=== PATIENT | male | born 1945 | race Caucasian/White ===

== ENCOUNTER → 2016-11-30 | Outpatient (CLI) | payer MEDICARE, BC ==
[~2016-11-30] MED LIST: ASPI81TA2 PO; BISO1TAB4 PO; FISH1CAP2 PO; GLUC1CAP25 PO; MELO15TA12 PO; MULT-37 PO; NIAC500T7 PO; PUMP160C PO
--- NOTE | 2016-11-30 13:14 | DI ---
LOCATION OF DICTATION: [place] EXAM: CHEST, PA LATERAL HISTORY: ITS.REASON: Z01.89 Encounter for other specified special examinations preoperative evaluation for shoulder surgery scheduled December 16. COMPARISON: Compared to August 18, 2013. FINDINGS: The heart size is normal. The mediastinal configuration is unremarkable. There are no consolidating opacities or pleural effusions. There is no evidence for a pneumothorax. The osseous structures are within normal limits. IMPRESSION: No acute cardiopulmonary abnormality is identified. .
== END ==
LOC: IMA 11:39
PROVIDERS: ATTEND Physician Assistant
DX: Z01.89 Encounter for other specified special examinations (principal)

== ENCOUNTER 2016-12-16 05:38 | Day surgery (SDC) | payer MEDICARE, BC ==
[2016-12-16] VITALS (17 sets, daily range): BP systolic 145–186; BP diastolic 71–87; PULSE 62–84; RESP 16–22; TEMP 97–97.6; O2SAT 91–97; Ht 174 cm; Wt 91.7 kg
[~2016-12-16] VITALS: Ht 174 cm; Wt 91.7 kg
--- OUTSIDE RECORDS SUMMARY | 2016-12-16 05:42 | XMS REPORT | Continuity of Care Document ---
Demographics Preferred Language Unknown Marital Status Unknown Faith Affiliation Unknown Race Unknown Ethnic Group Unknown Author Author [facility] Organization [facility] Address Unknown Phone Unavailable Allergies Medications Problems Procedures Results Encounters ACCT No. Visit Date/Time Discharge Status Pt. Type Provider Facility Loc./Unit Complaint [id number] 09/07/2013 09:56:00 ACT Unknown
--- OUTSIDE RECORDS SUMMARY | 2016-12-16 05:42 | XMS REPORT | CCD ---
Author Author [facility] Organization Unknown Address [address], [place] [id number] Phone 0 Care Team Providers Care Amphibious Operations Officer Name Role Phone Mahi SÁNCHEZ Attending Physician [phone] Vital Signs Unknown. Allergies Unknown. Procedures Unknown. History of Immunizations Unknown. Problems Unknown. Results Unknown. Medications Unknown. Medications Administered Unknown. Encounters Unknown. Social History Smoking Status Code Start Date End Date Former smoker [id number] Patient Decision Aids Unknown. Instructions You were admitted to [facility] on 09/06/2013. Should you have any questions prior to discharge, please contact a member of your healthcare team. If you have left the hospital and have any questions, please contact your primary care physician. Chief Complaint and Reason For Visit Chief Complaint Date of Onset PT Function Status Unknown. Plan of Care Unknown. Referral/Transition of Care Unknown.
--- OUTSIDE RECORDS SUMMARY | 2016-12-16 05:42 | XMS REPORT | Summary of Care ---
Author Author Lázaro Zapata M.D. 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, N40.1) Status: Active History of Gross hematuria (599.71, R31.0) Status: Resolved Medications Name Dates Details Saw [place] Oral Capsule Active Fish Oil 1000 MG Oral Capsule * Refills: 0 Active Aspirin EC 81 MG Oral Tablet Delayed Release * Refills: 0 Active Multi Vitamin Daily Oral Tablet * Refills: 0 Active Glucosamine Chondroitin TABS * Refills: 0 Active Niaspan 500 MG Oral Tablet Extended Release * Refills: 0 Active Meloxicam 15 MG Oral Tablet * Refills: 0 Active Bisoprolol-Hydrochlorothiazide 5-6.25 MG Oral Tablet * Refills: 0 Active Allergies and Adverse Reactions Name Dates Details No Known Allergies (Allergy) Status: Active Past Medical History Name Dates Details History of arthritis (V13.4, Z87.39) Status: Resolved History of Dyslipidemia (272.4, E78.5) Status: Resolved History of Gross hematuria (599.71, R31.0) Status: Resolved History of hypertension (V12.59, Z86.79) Status: Resolved Procedures Procedure Dates Details History of Colonoscopy History of Shoulder Surgery Procedures not documented Immunization Name Dates Details Immunizations not documented Family History Name Dates Details Family history of hypertension (V17.49, Z82.49) Comments: Family History Status: Active Name Dates Details Family history of congenital heart disease (V19.5, Z82.79) Status: Active Social History Name Dates Details - Status: Name Dates Details Never smoker Vital Signs Date Test Result Details No Known Vitals to report Results Date Description Value Details 11-Sep-2016 13:57 PSA ( PROSTATE SPECIFIC ANTIGEN) 3100 PROSTATE SPECIFIC ANTIGEN 2.350 ng/mL Range: 0.000-4.000 Plan of Care Name Dates Details Planned Observations Planned Goals not documented Planned Encounters Appointment; Provider: Lázaro Zapata M.D. On 10-Sep-2017 09:00 Instructions Name Dates Details Instructions not documented Encounters Appointment; Lázaro Zapata M.D. Encounter Diagnosis: Problem not documented On 11-Sep-2016 09:15 Appointment; Lázaro Zapata M.D. Encounter Diagnosis: Problem not documented On 30-Aug-2015 10:45
--- OUTSIDE RECORDS SUMMARY | 2016-12-16 05:42 | XMS REPORT | Summary of Care ---
Author Author Lázaro Zapata M.D. Unknown Address [address] [place] [address] [place] [address] Phone Unavailable Care Team Providers Care Crop Farmers Name Role Phone Lázaro Zapata M.D. Unavailable Unavailable Jerrell Rodriguez Unavailable Unavailable Unavailable Unavailable Functional [...] Status: Resolved Medications Name Dates Details Saw [place] Oral Capsule Active Fish Oil 1000 MG [...] History of Colonoscopy History of Shoulder Surgery PSA ( PROSTATE SPECIFIC ANTIGEN) 3100 Ordered: 11-Sep-2016 Immunization Name Dates Details Immunizations not documented [...] to report Results Date Description Value Details Results not documented Plan of Care Name Dates Details Planned Observations Planned Goals not documented Planned Encounters Appointment; Provider: Lázaro Zapata M.D. On 10-Sep-2017 09:00 Interventions Provided Labs/Procedures/Imaging* PSA ( PROSTATE SPECIFIC ANTIGEN) 3100; To be Done: 11 Sep 2016 Instructions Name Dates Details Instructions not documented Encounters Appointment; Lázaro Zapata M.D. Encounter Diagnosis: Problem not documented On 30-Aug-2015 10:45
--- OUTSIDE RECORDS SUMMARY | 2016-12-16 05:43 | XMS REPORT | Summary of Care ---
Author Author Lázaro Zapata M.D. Unknown Address [address] [place] [address] [place] [address] Phone Unavailable Care Team Providers Care Certified Welder Name Role Phone Lázaro Zapata M.D. Unavailable [...] Status: Resolved Medications Name Dates Details Saw [place] Oral Capsule Active Fish Oil 1000 MG [...]
--- OUTSIDE RECORDS SUMMARY | 2016-12-16 05:43 | XMS REPORT | Summary of Care ---
Author Author Lázaro Zapata M.D. Unknown Address [address] [place] [address] [place] [address] Phone Unavailable Care Team Providers Care Utility Bag Assembler Name Role Phone Jerrell Rodriguez PP Unavailable Unavailable Unavailable Functional Status Functional Status Health Issues* Name Dates Details Functional status health issues are not documented Status: Cognitive Status Health Issues* Name Dates Details Cognitive status health issues are not documented Status: Problems Name Dates Details BPH with obstruction/lower urinary tract symptoms (600.01, N40.1) Status: Active History of Gross hematuria (599.71, R31.0) Status: Resolved 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, 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: Active Medications Name Dates Details Saw [place] Oral Capsule ActiveFish Oil 1000 MG Oral Capsule * Refills: 0 ActiveAspirin EC 81 MG Oral Tablet Delayed Release * Refills: 0 ActiveMulti Vitamin Daily Oral Tablet * Refills: 0 ActiveGlucosamine Chondroitin TABS * Refills: 0 ActiveNiaspan 500 MG Oral Tablet Extended Release * Refills: 0 ActiveMeloxicam 15 MG Oral Tablet * Refills: 0 ActiveBisoprolol-Hydrochlorothiazide 5-6.25 MG Oral Tablet * Refills: 0 Active Allergies and Adverse Reactions Name Dates Details No Known Allergies Status: Active Past Medical History Name Dates Details History of arthritis (V13.4, Z87.39) Status: Resolved History of Dyslipidemia (272.4, E78.5) Status: Resolved History of Gross hematuria (599.71, R31.0) Status: Resolved History of hypertension (V12.59, Z86.79) Status: Resolved Procedures Procedure Dates Details History of Colonoscopy History of Shoulder Surgery PSA ( PROSTATE SPECIFIC ANTIGEN) 3100 Ordered:30-Aug-2015 Immunization Name Dates Details Immunizations not documented Family History Unknown Family Member* Name Dates Details Family history of hypertension (V17.49, Z82.49) Comments: Family History Status: Active Father* Name Dates Details Family history of congenital heart disease (V19.5, Z82.79) Status: Active Social History Name Dates Details Smoking Status* Never smoker Vital Signs Date Test Result Details 30-Aug-2015 10:29 BP Systolic 163 mm[Hg] Status: BP Diastolic 70 mm[Hg] Status: Heart Rate 56 /min Status: Height 70 in Status: Weight 206 lb Status: Body Mass Index Calculated 29.56 kg/m2 Status: Body Surface Area Calculated 2.11 m2 Status: Results Date Description Value Details Results not documented Plan of Care Planned Observations* Name Dates Details Planned Goals not documented Goal Planned Encounters* Appointment; Provider: Lázaro Zapata On 04-Sep-2016 09:30 Instructions * Instructions not documented Encounters Appointment; Lázaro Zapata Encounter Diagnosis: Problem not documented On 30-Aug-2015 10:45
--- OUTSIDE RECORDS SUMMARY | 2016-12-16 05:43 | XMS REPORT | Summary of Care ---
Author Author Lázaro Zapata M.D. Unknown Address [address] [place] [address] [place] [address] Phone Unavailable Care Team Providers Care Incinerator Plant Supervisor Name Role Phone Jerrell Rodriguez PP Unavailable [...] Status: Active Medications Name Dates Details Saw [place] Oral Capsule ActiveFish Oil 1000 MG Oral [...]
--- OUTSIDE RECORDS SUMMARY | 2016-12-16 05:43 | XMS REPORT | Summary of Care ---
Author Author Lázaro Zapata M.D. Unknown Address [address] [place] [address] [place] [address] Phone Unavailable Care Team Providers Care Heavy Equipment Service Manager Name Role Phone Jerrell Rodriguez PP Unavailable [...] Status: Active Medications Name Dates Details Saw [place] Oral Capsule ActiveFish Oil 1000 MG Oral [...]
--- OUTSIDE RECORDS SUMMARY | 2016-12-16 05:43 | XMS REPORT | Summary of Care ---
Author Author Lázaro Zapata M.D. Unknown Address [address] [place] [address] [place] [address] Phone Unavailable Care Team Providers Care Air Traffic Coordinator Name Role Phone Jerrell Rodriguez PP Unavailable [...] Status: Active Medications Name Dates Details Saw [place] Oral Capsule ActiveFish Oil 1000 MG Oral [...] m2 Status: Results Date Description Value Details 30-Aug-2015 13:12 PSA ( PROSTATE SPECIFIC ANTIGEN) 3100 PROSTATE SPECIFIC ANTIGEN 1.280 ng/mL (Better) Range: 0.000-4.000 Plan of Care Planned Observations* Name Dates Details Planned Goals not documented Goal Planned Encounters* Appointment; Provider: Lázaro Zapata On 04-Sep-2016 09:30 Instructions * Instructions not documented Encounters Appointment; Lázaro Zapata Encounter Diagnosis: Problem not documented On 30-Aug-2015 10:45
--- OUTSIDE RECORDS SUMMARY | 2016-12-16 05:43 | XMS REPORT | Summary of Care ---
Author Author [facility] Organization [facility] Address [address] [place] [address] Phone Care Team Providers Care Chemist Steroids Name Role Phone Royal Redman, User Unavailable Unavailable Jerrell Rodriguez Unavailable Unavailable Unavailable [...] Status: Resolved Medications Name Dates Details Saw [place] Oral Capsule Active Fish Oil 1000 MG [...] Provider: Lázaro Zapata M.D. On 10-Sep-2017 09:00 Appointment; Provider: Lázaro Zapata M.D. On 13-Jan-2017 09:00 Instructions Name Dates Details Instructions not documented Encounters Appointment; Lázaro Zapata M.D. Encounter Diagnosis: Problem not documented On 11-Sep-2016 09:15 Appointment; Lázaro Zapata M.D. Encounter Diagnosis: Problem not documented On 30-Aug-2015 10:45
[2016-12-16] MEDS ORDERED: CEFAZOLIN 2 G in NORMAL SALINE 100 ML IV ONE (06:15)
[2016-12-16 06:23] LABS: ANION GAP 15 MEQ/L (5-15); BUN/CREATININE RATIO 22 RATIO (6-26); CALCIUM 9.6 MG/DL (8.4-10.2); CHLORIDE 108 MEQ/L (98-107); CO2 - CARBON DIOXIDE 24 MEQ/L (22-30); CREATININE 1.3 MG/DL (0.8-1.5); GLOMERULAR FILTRATION RATE 55; GLUCOSE 103 MG/DL (75-110); POTASSIUM 4.1 MEQ/L (3.6-5); SODIUM 147 MEQ/L (134-144)
[2016-12-16] MEDS ORDERED: LIDOCAINE 1% (10mg/ml) 2ml SDV INJ ONE (07:00)
[2016-12-16] MEDS ORDERED: MIDAZOLAM 2mg/2ml INJECTION IV ONE (07:00)
[2016-12-16] MEDS ORDERED: LR 1,000 ML IV SCH (07:00)
[2016-12-16] MEDS ORDERED: LIDOCAINE 2% (20mg/ml) 5ml PF SDV ONE (07:11)
[2016-12-16] MEDS ORDERED: ONDANSETRON 4mg/2ml INJECTION ONE (07:12)
[2016-12-16] MEDS ORDERED: DEXAMETHASONE 4mg/ml - 1ml INJECTION ONE (07:12)
[2016-12-16] MEDS ORDERED: CEFAZOLIN 1 GRAM INJECTION IV ONE (08:00)
[2016-12-16] MEDS ORDERED: ONDA4TAB4 PO (09:03)
[2016-12-16] MEDS ORDERED: OXYC1TAB8 PO (09:03)
--- NOTE | 2016-12-16 09:05 | PDPROCED ---
Immediate Operative Note DATE: 12/16/16 TIME: 09:04 Preop Diagnosis: LEFT SHOULDER ROTATOR CUFF TEAR, IMPINGEMENT Postop Diagnosis: Left shoulder rotator cuff tear, impingement Surgical Procedures: L Arthroscopic RCR (JUN) Surgeon: Dina Nuclear Medicine Tech: WU Pemberton Anesthesia: General (plus regional block) Complications: none Estimated Blood Loss see anesthesia AVINASH CARABALLO December 16, 2016 09:05
--- NOTE | 2016-12-16 09:38 | ANESPREOP ---
Anesthesia Record Date and Time DATE: 12/16/16 TIME: 0650 Proposed Surgical Procedure LT. SHOULDER ARTHROSCOPY/RCR/SAD/RAMIREZ Allergies: Coded Allergies: No Known Allergies (Unverified , 12/16/16) Ht/Wt/BMI Height: 5 ' 8.50 " Weight: 91.700 kg BMI: 30.3 kg/m2 Vital Signs Date Time Temp Pulse Resp B/P Pulse Ox O2 Delivery O2 Flow Rate FiO2 12/16/16 09:30 97.4 81 16 148/76 94 Nasal Cannula 2.00 Medications Inpatient Medications Current Medications Medications (Trade) Dose Ordered Sig/Nichole Start Time Stop Time Status Last Admin Dose Admin Lactated Ringer's (Lactated Ringers) 1,000 ml @ 50 mls/hr Q20H 12/16/16 07:00 12/16/16 06:17 50 MLS/HR Aspirin (Aspirin) 81 Mg Tab.chew, 1 TAB PO DAILY, (Reported) Last Taken: on 12/08/16 Bisoprolol Fumarate/Hctz (Bisoprolol-Hctz 5-6.25 mg Tab) 1 Each Tablet, 1 TAB PO DAILY, (Reported) Last Taken: on 12/15/16 0800 Glucosa Jimenez 2Kcl/Chondroitin Jimenez (Glucosamine & Chondroitin Cap) 1 Each Capsule, 1 CAP PO DAILY, (Reported) Last Taken: on 12/08/16 Meloxicam (Mobic) 15 Mg Tablet, 1 TAB PO DAILY, ( Reported) Last Taken: on 12/08/16 Multivitamin (Daily Multiple Vitamin) 1 Each Tablet , 1 TAB PO DAILY, (Reported) Last Taken: on 12/08/16 Niacin (Niacin) 500 Mg Tablet, 3 TAB PO BID, ( Reported) Take one tablet, by mouth, daily at bedtime. Last Taken: on 12/08/16 [place]-3 Fatty Acids/Fish Oil (Fish Oil 1,000 mg Capsule) 1 Each Capsule, 1,000 MG PO BID, (Reported) Last Taken: on 12/08/16 Ondansetron HCl (Zofran) 4 Mg Tablet, 4 MG PO Q6H PRN for NAUSEA Oxycodone HCl/Acetaminophen (Percocet 5-325 mg Tablet) 5-325 Tablet, 5-10 MG PO Q4HPRN Pumpkin Seed Oil/Saw Sharon (Saw Sharon 160 mg Softgel) 160 Mg Capsule, 2 CAP PO BID, (Reported) Last Taken: on 12/08/16 Currently on Beta Raheem: Yes Beta Raheem Last Taken: 12/15/16 0800 Medical/Surgical History Anesthesia PMH: Reports: *Diabetes (PRE-DIABETIC- CONTROLLED WITH DIET), * Hypertension (CONTROLLED WITH MEDS ), Arthritis, Other (Hypertension), Denies: * Angina, *Dyspnea, *DE, Anesthesia Reactions (NO AIRWAY ISSUES ), Asthma, CHF, COPD, CVA/Stroke/TIA, Cancer, Clotting Problems, Deep Vein Thrombosis, Glaucoma , Hepatitis, Hiatal Hernia, Malignant Hyperthermia, Pneumonia, Reflux, Renal Disease, Seizures, Sleep Apnea, Thyroid Disease, Tuberculosis Smoking Status: Never smoker Has pt. smoked today?: No Use Chewing Tobacco?: No Second Hand Exposure: No Substance Use Type: does not use Alcohol Intake: none Past Surgical History Orthopedic Surgeries: Yes - R.SHOULDER ARTHROSCOPY WITH RCR Abdominal Surgeries: No Genitourinary Surgeries: No Cardiac Surgeries: Yes - HEART CATH. Endocrine Surgeries: No Reproductive Surgeries: No Neurological Surgeries: No Ear Surgeries: No Nose Surgeries: No Throat Surgeries: No Other Surgeries: Yes - COLONSCOPY Anesthesia Adverse Reactions: FOUND none Family Hx of Anesthesia Advers: none Hx of Motion Sickness: No Pertinent Findings Laboratory Tests 12/16/16 06:01 EKG Rhythm: Sinus Rhythm EKG Ectopy: PVC Physical Exam Respiratory: Lungs clear Cardiovascular: FOUND Regular rate, rhythm, FOUND No murmur Airway Assessment Mallampati Score: II TMD: 3 Fingerbreadths Neck Extension: Good Teeth: Upper Dentures, Lower Dentures Overall Assessment: No Airway Concerns ASA: 2 Plan Anesthesia Plan: GETA Peripheral Nerve Block: Interscalene Block - LT Discussion Discussed risks/options/alternatives of anesthesia and questions answered. Patient consents. Nursing pain assessment noted. Present: Spouse Attestation Statement Prior to the delivery of any anesthetic medication, I examined the patient, developed the plan, obtained the patient's consent and discussed the risk and benefits of the procedure with the patient/guardian. MICK HOFFMAN CRNA December 16, 2016 09:38
--- NOTE | 2016-12-16 10:39 | ANESPD ---
Peripheral Nerve Blockade Physician: Darren Arroyo MD Date: 12/16/16 Discussion Discussed risks/options/alternatives of anesthesia and questions answered. Patient consents. Nursing pain assessment noted. Block Start: 07:03 Block Stop: 07:07 Block Employed: [employer] Indication: post-operative pain Approach: left side confirmed Position: supine Patient: Consent, risks/benefits discussed, Informed, post block act. discussed Monitors: EKG, SpO2 IV Sedation: Yes Sedation: sedate w/meaningful contact Midazolam (mg): 2 Initial Vital Signs First Documented Vital Signs Date Time Temp Pulse Resp B/P Pulse Ox O2 Delivery O2 Flow Rate FiO2 12/16/16 05:52 97.6 65 16 186/87 95 Room Air Post Vital Signs Vital Signs Date Time Temp Pulse Resp B/P Pulse Ox O2 Delivery O2 Flow Rate FiO2 12/16/16 07:10 64 18 165/84 94 Room Air 12/16/16 05:52 97.6 Initial Pain Score: 0 Post Block Score: 0 Prep: chlorhexadine/ETOH Ultrasound Used?: Yes Nerve Simulator mA set at: 0.5 Abates at (mA): 0.35 Needle Depth: 1 Muscle Response: Yes Parathesia/Pain: none Injectate Ropivacaine (%): 0.5 Ropivacaine (mL): 20 Was Epi 1:200,000 Used?: No Injection Injection made incrementally with constant monitoring and aspiration every [5] ml. MICK HOFFMAN CRNA December 16, 2016 07:54
--- NOTE | 2016-12-16 10:48 | ANESPO ---
Post-Op Note Date 12/16/16 Time: 10:30 Status Pt Participated in Evaluation: Pt participated in person Vital Signs Date Time Temp Pulse Resp B/P Pulse Ox O2 Delivery O2 Flow Rate FiO2 12/16/16 10:25 77 16 148/74 92 Room Air 12/16/16 09:40 97.4 12/16/16 09:35 2.00 Respiratory Function: Airway patent Cardiovascular Function: Regular pulse Mental Status: Alert/oriented Pain Level Intensity: 0 Hydration: Taking po fluids Complications during Recovery None apparent Follow-Up Instructions Instructions Per Surgeon MICK HOFFMAN CRNA December 16, 2016 10:43
--- NOTE | 2016-12-16 15:00 | OPNOTEF ---
DATE 12/16/2016 PREOPERATIVE DIAGNOSIS Left shoulder rotator cuff tear. POSTOPERATIVE DIAGNOSIS 1. Left shoulder rotator cuff tear. 2. Left shoulder degenerative type 1 superior labral tear. 3. Left shoulder rotator cuff impingement. PROCEDURE 1. Left shoulder arthroscopic rotator cuff repair. 2. Left shoulder arthroscopic limited debridement, superior labrum. 3. Left shoulder arthroscopic subacromial decompression. SURGEON Darren Arroyo MD AIR CONDITIONING ENGINEER Pérez [place] PA-C ANESTHESIA General with regional block. FLUIDS Please refer to Anesthesia chart. EBL Minimal. TOURNIQUET None used. COMPLICATIONS None. CONDITION Stable to recovery room. IMPLANTS Escudero [employer] Nephew 5.0 mm TWINFIX anchor x 1. Paco #2 Force Fiber free-strand suture x 1. Arthrex #2 FiberWire free-strand suture x 1. DESCRIPTION OF PROCEDURE The patient was identified in the preoperative holding area. The operative extremity was identified and appropriately marked. The risks, benefits, alternatives and potential complications were discussed and informed consent was obtained. The patient was taken to the operating theatre, placed supine on the operating table. Appropriate cardiorespiratory monitors were applied. General anesthesia was induced. A regional block had been placed in preoperative holding. The patient was positioned in a seated beach chair position with all bony prominences well padded. The head and neck were secured in a safe position. The left upper extremity was sterilely prepped and draped in the usual fashion. Surgical time-out was performed, confirmed with myself, the home health scheduler and circulating nurse. Preop antibiotics were given. Examination under anesthesia revealed full passive range of motion of the left shoulder. No evidence of instability. A standard posterior arthroscopic portal was established. The arthroscope was inserted and the glenohumeral joint was insufflated with saline. Needle localization was utilized to establish an anterior portal in the rotator interval. Diagnostic examination ensued. Subscapularis was intact. There was some minor fraying near the superior attachment which was debrided. Glenohumeral articular cartilage was well maintained. Anterior, inferior and posterior lisa were intact. Inferior axillary recess was free of loose bodies or debris. Superior labrum showed some fraying. Probing of this revealed no detachment of the long head biceps anchor. This area was debrided with a shaver of any loose tissue. The long head biceps was intact in its intraarticular and extraarticular portions. Inspection of the undersurface of the rotator cuff noted the teres minor and infraspinatus to be intact. There was complex tearing of the supraspinatus. There appeared to be some partial articular-sided tearing of the central portion of the supraspinatus. This footprint portion was debrided. There was then a mid -tendon transverse tear which appeared to be degenerative and related to impingement based on tissue appearance. The arthroscope was withdrawn and placed in the subacromial space. A lateral portal was established. A thorough bursectomy was then performed to include the anterolateral and posterior gutters. Note was made of marked fraying of the CA ligament with a severe downsloping, spurring of the anterolateral acromion. Dissection of the undersurface tissue off of the acromion over to the level of the AC joint showed a similarly large spur at the medial acromion adjacent to the AC joint. A 5.5 bur was inserted and acromioplasty was performed to convert this to a type 1 flat acromion which significantly improved space for operating within the subacromial space. The rotator cuff tear was then identified. There was marked degenerative tissue of the tendon. The footprint tissue was essentially intact and this was a mid-tendinous tear approximately 1 cm lateral to the musculotendinous junction. Free edges of both sides of the tendon were debrided with a suction shaver. It was elected to proceed with a complex repair of this tear. First, at the anterior margin of the tear which lay just posterior to the biceps tendon, a simple suture was passed through both the medial and lateral aspects of the tendon crossing the tendon tear. These sutures were stored anteriorly. Following this, the previously debrided area of the articular side of the midportion of the supraspinatus was identified and a percutaneous portal was utilized to place a 5.0 mm TWINFIX anchor. Both of these sutures were similarly passed in a simple fashion, capturing laterally the tissue off of the footprint and medially the musculotendinous tissue. A final free Arthrex FiberWire suture was passed again in a simple fashion at the posterior margin of the tear, again capturing musculotendinous side of the tear and the lateral side still attached to the tuberosity. The central sutures were then tied arthroscopically first, followed by tying of the posterior and anterior free-strand sutures. This provided good reapproximation of the tendon. Probing of the tendon tear revealed no obvious gapping. Motion of the shoulder showed no gapping of the tendon as well. Overall quality of the tissue, however, was quite degenerative and frayed, particularly on the bursal aspect. This was gently debrided of any loose or nonviable tissue. The shoulder was then copiously lavaged, irrigated and drained. All arthroscopic instruments were removed. Portals were closed with nylon sutures. Sterile dressings were applied followed by a Polar Pack with all skin edges covered with surgical towels. An abduction sling was applied. The patient was awakened from anesthesia and taken to the recovery room in stable and satisfactory condition. CARO
== END 2016-12-16 10:28 | disposition home or self-care (01) ==
LOC: NSC 05:38
PROVIDERS: ATTEND Orthopaedic Surgery
DX: M75.112 Incomplete rotator cuff tear or rupture of left shoulder, not specified as traumatic (principal); M75.42 Impingement syndrome of left shoulder; I10 Essential (primary) hypertension; Z79.82 Long term (current) use of aspirin; Z79.899 Other long term (current) drug therapy; Z79.1 Long term (current) use of non-steroidal anti-inflammatories (NSAID)
CPT/HCPCS: 29826; 29827; 36415; 76942; 80048; C1713; J0330; J0690; J1100; J2250; J2405; J7050; J7120